=== PATIENT | male | born 1935 | race Caucasian/White ===

== ENCOUNTER 2018-04-18 08:27 | Outpatient (CLI) | payer MEDICARE, BC ==
[2018-04-18] MEDS ORDERED: ISOVUE-370 76%-LOCM 1 ML ONE (13:46)
== END 2018-04-18 08:28 | disposition home or self-care (01) ==
LOC: BICCT 08:27
PROVIDERS: ATTEND Urology
DX: R31.0 Gross hematuria (principal); N20.0 Calculus of kidney; N32.89 Other specified disorders of bladder; N32.3 Diverticulum of bladder
CPT/HCPCS: 74178; 82565

== ENCOUNTER 2018-04-28 12:06 | Outpatient (CLI) | payer MEDICARE, BC ==
[2018-04-28 14:03] LABS: Hemoglobin 14.1 g/dL (14.0-18.0); Mean Corpuscular HGB CONC 33.8 g/dL (32.0-36.0); Mean Corpuscular Hemoglobin 31.3 pg (27.0-31.0); Mean Corpuscular Volume 92.5 fL (78.0-98.0); Mean Platelet Volume 8.3 fL (7.4-10.4); Platelet Count 132 thou/uL (130-400); RBC Distribution Width 11.9 % (11.5-14.5); White Blood Cell (WBC) Count 4.8 thou/uL (4.8-10.8)
[2018-04-28 14:12] LABS: INR-International Normal Ratio 1.2; PTT 29.4 SEC (22.9-36.1); Prothrombin Time 15.3 SEC (12.0-14.7)
[2018-04-28 14:13] LABS: Bilirubin Negative (Negative); Blood, Urine Large (Negative); Clarity CLEAR (Clear); Glucose, Urine (Dipstick) Negative (Negative); Leukocyte Small (Negative); Nitrite Negative (Negative); Protein, Urine (Dipstick) Negative (Neg-Trace); Specific Gravity, Urine 1.011 (1.002-1.036); Urobilinogen 0.2 mg/dL (0.2-1.0); pH, Urine 7.5 (5.0-9.0)
[2018-04-28 14:18] LABS: Bacteria/HPF None Seen HPF (None Seen); Hyaline Casts/LPF 0-3 HYALINE CAST LPF (0-3 Hyaline); Pathc Cast-AUWi Flag 0.43 (0-2.49); RBC/HPF GREATER THAN 50-TNTC HPF (0-3); Squamous Epithelial None Seen HPF (0-3); WBC/HPF 0-3 HPF (0-3)
[2018-04-28 14:21] LABS: Anion Gap 11 mmol/L (10-20); BUN (Urea Nitrogen) 28 mg/dL (8.4-25.7); Calc. Creatinine Clearance 0 mL/min (70-130); Calcium 9.7 mg/dL (7.8-10.44); Carbon Dioxide 29 mmol/L (23-31); Chloride 103 mmol/L (98-107); Estimated GFR-MDRD 67; Glucose 88 mg/dL (83-110); Potassium 4.2 mmol/L (3.5-5.1); Sodium 139 mmol/L (136-145)
== END 2018-04-28 12:07 | disposition home or self-care (01) ==
LOC: LABBT 12:06
PROVIDERS: ATTEND Urology
DX: Z01.818 Encounter for other preprocedural examination (principal); C67.2 Malignant neoplasm of lateral wall of bladder; N40.1 Benign prostatic hyperplasia with lower urinary tract symptoms
CPT/HCPCS: 80048; 81001; 85027; 85610; 85730; 86850; 86900; 86901; 87086; 93005; 93010

== ENCOUNTER 2018-04-28 13:25 | Inpatient (IN) | payer MEDICARE, BC ==
[2018-04-28 13:59] LABS: #Basophils 0.1 thou/uL (0.0-0.2); #Eosinphils 0.3 thou/uL (0.0-0.7); #Lymphocytes 1.3 thou/uL (1.20-3.40); #Monocytes 0.5 thou/uL (0.11-0.59); #Neutrophils 2.4 thou/uL (1.40-6.50); %Basophils 1.3 % (0.0-1.0); %Eosinophils 6.7 % (0.0-10.0); %Lymphocytes 28.8 % (21.0-51.0); %Monocytes 10.9 % (0.0-10.0); %Neutrophils 52.4 % (42.0-75.0); Hemoglobin 14.4 g/dL (14.0-18.0); Mean Corpuscular HGB CONC 33.4 g/dL (32.0-36.0); Mean Corpuscular Volume 92.9 fL (78.0-98.0); Mean Platelet Volume 7.8 fL (7.4-10.4); Platelet Count 127 thou/uL (130-400); RBC Distribution Width 11.8 % (11.5-14.5); Red Blood Cell (RBC) Count 4.64 mill/uL (4.70-6.10); White Blood Cell (WBC) Count 4.6 thou/uL (4.8-10.8)
[2018-04-28 14:13] LABS: Magnesium 2.4 mg/dL (1.6-2.6); Phosphorus 3.4 mg/dL (2.3-4.7)
[2018-04-28 14:20] LABS: ALT (SGPT) 24 U/L (8-55); AST (SGOT) 28 U/L (5-34); Albumin 4.1 g/dL (3.4-4.8); Alkaline Phosphatase 70 U/L (40-150); Anion Gap 11 mmol/L (10-20); BUN (Urea Nitrogen) 27 mg/dL (8.4-25.7); Bilirubin, Total 1.7 mg/dL (0.2-1.2); Calc. Creatinine Clearance 0 mL/min (70-130); Calcium 9.6 mg/dL (7.8-10.44); Carbon Dioxide 29 mmol/L (23-31); Chloride 103 mmol/L (98-107); Estimated GFR-MDRD 67; Globulin 2.4 g/dL (2.4-3.5); Glucose 93 mg/dL (83-110); Potassium 4.5 mmol/L (3.5-5.1); Protein, Total 6.5 g/dL (5.8-8.1); Sodium 138 mmol/L (136-145)
[2018-04-28 14:26] LABS: CKMB 4.3 ng/mL (0-6.6); Troponin I Less than 0.010 ng/mL (< 0.028)
[2018-04-28] MEDS ORDERED: Heparin 25,000 units/D5W 500 ML ONE (15:18)
[2018-04-28 15:23] LABS: INR-International Normal Ratio 1.2; PTT 29.5 SEC (22.9-36.1); Prothrombin Time 15.5 SEC (12.0-14.7)
[2018-04-28] MEDS ORDERED: Heparin 25,000 units/D5W 500 ML IV SCH (15:30)
--- NOTE | 2018-04-28 15:32 | RAD ---
PORTABLE CHEST: 04/28/18 HISTORY: Atrial flutter. Lungs appear clear. No infiltrate. No evidence of vascular congestion or edema. Heart size is upper n ormal. IMPRESSION: No acute lung process identified on portable exam. POS: [facility]
[2018-04-28 17:16] LABS: Troponin I Less than 0.010 ng/mL (< 0.028)
[2018-04-28] MEDS ORDERED: Acetaminophen 325 MG TAB PO PRN (18:28)
[2018-04-28] MEDS ORDERED: Ondansetron HCl/PF 4 MG/2 ML Vial IVP PRN (18:28)
[2018-04-28] MEDS ORDERED: Ondansetron ODT 4 MG TAB SL PRN (18:28)
[2018-04-28 20:12] LABS: Troponin I Less than 0.010 ng/mL (< 0.028)
[2018-04-28] MEDS ORDERED: Enoxaparin Sodium 40 MG/0.4 ML SYRINGE SC SCH (20:15)
[2018-04-28 20:18] VITALS: BMI 25.0
[2018-04-28] MEDS: Silodosin 8 MG CAP PO SCH (22:11)
[2018-04-28 22:35] LABS: INR-International Normal Ratio 1.3; PTT 40.7 SEC (22.9-36.1)
--- NOTE | 2018-04-29 02:41 | CON ---
DATE OF CONSULTATION: 04/28/2018 REASON FOR CONSULTATION: Atrial flutter with a slow ventricular response. HISTORY OF PRESENT ILLNESS: Mr. Ruiz is a delightful 82-year-old gentleman. He was planning on hav ing surgical therapy on his bladder next week. He came in for preoperative evaluation, was found to have atrial flutter with a slow ventricular response. The patient denies chest pain or pressure. He gets lightheaded only when he stands up quickly, but n ot otherwise routinely. No syncope or near syncope. Otherwise, he had been active and relatively he althy for 82 years of age. MEDICATIONS PRIOR TO ADMISSION: No cardiac medicines. Rapaflo. ALLERGIES: LATEX. REVIEW OF SYSTEMS: Constitutional: No significant weight gain or loss. Vision: No changes. Heari ng: No changes. Pulmonary: No cough or wheezing. Gastrointestinal: No nausea, vomiting, diarrhea . Skin: No rashes. Neurologic: No unilateral weakness or numbness. Psychiatric: No unusual depr ession or anxiety. Hematologic: No unusual bruising. Genitourinary: Positive for intermittent hem aturia. PHYSICAL EXAMINATION: GENERAL: A pleasant elderly gentleman, looks younger than his chronologic age. VITAL SIGNS: Blood pressure 142/69, pulse 40, it is currently regular. HEENT: Eyes, sclerae nonicteric. Mouth mucous membranes moist. NECK: Supple, no lymphadenopathy. LUNGS: Clear. CARDIAC: It is regular but slow. No murmur, rub or gallop. ABDOMEN: Soft, nontender. EXTREMITIES: No clubbing or cyanosis. There is no edema. He has good posterior tibial pulses bilat erally. LABORATORY AND X-RAY FINDINGS: EKG reveals atrial flutter with a slow ventricular response. ASSESSMENT: 1. Atrial flutter with a slow ventricular response. 2. The patient has a problem with the bladder, which will require surgical therapy. PLAN: 1. Echocardiogram. 2. We will consult Dr. Mantilla at some point as patient likely will need pacemaker insertion. 3. Hopefully, also could consider atrial flutter ablation, really could not do flutter ablation curr ently as I really cannot be anticoagulated due to the potential for hematuria.
[2018-04-29 05:32] LABS: INR-International Normal Ratio 1.3; PTT 34.1 SEC (22.9-36.1); Prothrombin Time 15.8 SEC (12.0-14.7)
[2018-04-29] MEDS ORDERED: Silodosin 8 MG CAP PO SCH ×2 (08:00→18:00)
--- NOTE | 2018-04-29 08:17 | PRG ---
DATE OF SERVICE: 04/29/2018. SUBJECTIVE: The patient is feeling fine. Denies chest pain. Denies shortness of breath. He has be en active, mowing his own lawn, exercising 3-4 times a week. He states that he does have some anxiet y over what is going on with his low heart rate and anxious about how to proceed from here. OBJECTIVE: VITAL SIGNS: Temperature 98.2, pulse of 52-59, respirations 16, blood pressure 139/93, pulse ox is 9 5%-98% on room air. GENERAL: He is awake and alert, in no acute distress. Speech is clear. NECK: Supple. HEART: Bradycardic. LUNGS: Clear. ABDOMEN: Soft. EXTREMITIES: With no edema. LABORATORY DATA: PT 15.8, PTT 34.1, INR 1.3. Chemistry remained stable. Troponin I has been negati ve x3. IMAGING: Chest x-ray from yesterday reveals no active disease. EKG continued to show atrial flutter with rates in the 50s. ASSESSMENT AND PLAN: This is an 82-year-old gentleman with no prior medical history except for glauc nica and benign prostatic hypertrophy and in the process of being worked up for possible bladder cance r, now with new onset atrial flutter with slow ventricular response and bradycardia. 1. Atrial flutter. Awaiting echocardiogram and further plan per Cardiology and Electrophysiology, p ossible pacemaker placement versus ablation. 2. Bladder mass. Hopefully, we will be able to proceed the procedure with Dr. Nuñez next week. 3. Benign prostatic hypertrophy. We will continue Rapaflo.
--- NOTE | 2018-04-29 09:50 | HP ---
DATE OF ADMISSION: 04/28/2018 PRIMARY CARE PHYSICIAN: Magdy Reilly D.O. CHIEF COMPLAINT: Bradyarrhythmia. HISTORY OF PRESENT ILLNESS: The patient was undergoing preoperative EKG for prostatic cancer resecti on, when he was found to be in atrial flutter with rates in the 30s. The patient was asymptomatic, t ransported to the emergency department with confirmatory EKG remained in the 30s and asymptomatic atr ial flutter. The patient was started on a heparin drip in the emergency department in case more urge nt procedures wanted to be done by Cardiology. Cardiology was consulted from emergency department to follow. The patient remained stable and asymptomatic. The patient recently had a biopsy to the con firmed mass with some hematuria and blood clots in urine for the last 2 days. This is much improved since heparin drip was started, and in the last couple hours, he has not had any new bleeding in urin e reported yet. PAST MEDICAL HISTORY: Includes a Dupuytren's contracture, actinic keratosis, benign prostatic hyperp lasia, prostatic cancer, hernia surgery, migraines, glaucoma. The patient is taking travoprost 1 johnnie p ophthalmic, silodosin 8 mg capsule with meals daily and 0.5 solution 1 drop ophthalmic twice daily. PAST SURGICAL HISTORY: Includes cataract removal and hernia repair. SOCIAL HISTORY: The patient denies tobacco use. He is currently , nondrinker. ALLERGIES: Include SHRIMP. REVIEW OF SYSTEMS: More formal review of systems, no fevers, no chills, no cough, no congestion, no chest pain, no palpitations, no abdomen pain, no diarrhea, no nausea, no vomiting. Positive hematuri a, no dysuria, no lower extremity edema, no headache, no confusion. PHYSICAL EXAMINATION: VITAL SIGNS: Review of vital signs on arrival to floor, temperature of 98.1, pulse of 41, respirator y rate of 18, oxygen saturation 96% on room air, blood pressure 142/69. GENERAL: The patient is alert and oriented, in no acute distress. HEENT: Head is normocephalic, atraumatic. Extraocular movements are intact. Sclerae are clear. Or al mucosa is moist. NECK: Supple. HEART: Irregularly irregular. No murmurs auscultated. LUNGS: Clear to auscultation bilaterally. No rubs or wheezes. ABDOMEN: Soft, nontender, positive bowel sounds throughout. EXTREMITIES: Lower extremities without cyanosis or edema. NEUROLOGIC: The patient is alert and oriented. No focal deficits. Speech is normal. LABORATORY WORK: Review of laboratory work, white blood cell count of 4.6, hemoglobin of 14.4, plate let count of 127. INR of 1.2, PTT of 29.5. Troponins x3 less than 0.01. Sodium of 138, potassium o f 4.5, CO2 of 29, BUN of 27, creatinine of 1.05, glucose of 93, phosphorus of 3.4, magnesium of 2.4, total bilirubin isolated of 1.7, AST of 28, ALT of 24, alkaline phosphatase of 70, albumin of 4.1. C hest x-ray without acute cardiopulmonary events. ASSESSMENT AND PLAN: Atrial flutter with severe bradycardia. Patient currently asymptomatic and hea rt rate has rebounded. Continuing heparin drip from emergency department. Consulting Cardiology for further recommendations on cardioversion, medical management, or pacemaker needs. I will maintain t he patient on clear liquid in case they decide for any intervention tomorrow. Place patient on telem etry. Cardiology has recommended echocardiogram first to better denote the etiology of the atrial fl utter. We will discuss with Dr. Magdy Reilly for hand off tomorrow.
--- NOTE | 2018-04-29 11:41 | CON ---
DATE OF CONSULTATION: 04/29/2018 REFERRING PHYSICIAN: Jani Astudillo M.D. REASON FOR CONSULTATION: Atrial flutter with slow ventricular response. HISTORY OF PRESENT ILLNESS: Mr. Ruiz is a very pleasant, elderly gentleman who was initially brought in to have surgery on his bladder next week. He came in for preoperative evaluation and was found to be in atrial flutter with slow ventricular response with heart rates in the 30s. He is largely asymptomatic with this. He does endorse occasional lightheadedness, but only when standing up. He has not had any syncope or near syncopal episodes. He denies any stroke or stroke-like symptoms, heart racing, palpitations, chest pain or pressure. He continues to lead an active lifestyle and does not have a history of abnormal heart rhythms in the past. While he was in the emergency room, he was started on a heparin drip for anticoagulation. The patient has recently had a biopsy of his confirmed urologic mass and has passed some small blood clots in his urine over the past 2 days. He denies any worsening of symptoms or increased bleeding. He denies any cleo blood in his urine, just the occasional passage of small clot. REVIEW OF SYSTEMS: A 12-point review of systems was conducted and is negative except that listed above in the HPI. PAST MEDICAL AND SURGICAL HISTORY: 1. Prostatic cancer. 2. Benign prostatic hypertrophy. 3. Actinic keratosis. 4. Hernia surgery. 5. Migraines. 6. Glaucoma. SOCIAL HISTORY: Negative for tobacco, alcohol, and drug use. Currently , lives with his . FAMILY HISTORY: Negative for sudden cardiac or early onset coronary artery disease to the best of his knowledge. ALLERGIES: Include SHRIMP and LATEX. MEDICATIONS AT HOME: Include betaxolol HCL eye drops b.i.d., Travatan Z one drop each eye at bedtime and Rapaflo q.a.c. 8 mg capsule p.o. daily. PHYSICAL EXAMINATION: VITAL SIGNS: Most recent vital signs include temperature of 98.2, heart rate 59 , blood pressure 139/93, oxygen is 98% on room air, and respirations are 16. GENERAL: This is a well-appearing, well-groomed and well-nourished elderly gentleman in no apparent distress. He is alert and oriented. His speech is clear. His affect is appropriate. HEENT: He is normocephalic, atraumatic. His sclerae is anicteric, and his EOMs are intact. His oral mucosa is moist and pink. He has adequate dentition. NECK: Supple without jugular venous distention. His thyroid is nonpalpable. LUNGS: Clear to auscultation bilaterally without wheezes, crackles, or rhonchi. CARDIOVASCULAR: His heart rate is irregular and slightly slow. PMI is nondisplaced. There are no murmurs, rubs or gallops. ABDOMEN: Soft, nontender without palpable masses and hepatojugular reflex is negative. Positive bowel sounds are noted throughout. EXTREMITIES: Warm and dry to touch without clubbing, cyanosis or edema. NEUROLOGIC: Grossly intact with cranial nerves II through XII. Gait was not assessed. LABORATORY DATA AND X-RAY FINDINGS: Hematology was reviewed and is stable with hemoglobin 14.4, hematocrit 43.1, platelet count slightly low at 127. Chemistry : Sodium 138, potassium 4.5, BUN is 27, creatinine 1.05, phosphorus 3.4, magnesium 2.4, AST 28, ALT 24. Serial troponins have been negative. Chest x- ray in the emergency room showed no acute lung processes identified. No vascular congestion or edema. Heart size is normal. DATABASE: Review of EKG and telemetry, all strips and rhythms were personally reviewed and revealed typical atrial flutter with variable AV conduction occasionally with extremely low ventricular rates in the 30s. Currently, largely sustaining in the 40-50 beat per minute range. Otherwise, normal intervals. ASSESSMENT: 1. Typical atrial flutter with slow ventricular response. 2. Bradycardia, asymptomatic. 3. Bladder mass requiring surgical therapy, hopefully in the near future. 4. Mild hematuria. RECOMMENDATIONS: A long discussion was had with Mr. Ruiz and his regarding treatment options and considerations at this time. With his recent hematuria, anticoagulation is somewhat of a challenge. He does run the risk for severe bleeding complications if oral anticoagulation is initiated. With that being said, oral anticoagulation must be in place before ablation can be considered in the future. While in his atrial flutter, his ventricular response is quite slow and certainly a pacemaker is an appropriate way to proceed to correct his bradycardia. We are awaiting an echocardiogram to evaluate LV function as well as to assess for a dyssynchrony and to further evaluate if the patient would benefit from biventricular pacing instead of just a dual chamber pacemaker. All risks, benefits, and alternatives were discussed with the patient. Risks of pacemaker implantation include pain, swelling, bruising, infection, and damage to the lung and damage to the heart that may require additional surgical intervention or chest tube placement temporarily. The patient and his voiced understanding and agreed to move forward with pacemaker implantation, possibly biventricular once echocardiogram results are available and reviewed. In the future, we will discuss CTI ablation to address his atrial flutter once his hematuria has been resolved. He also does require urologic surgery for his reportedly cancerous mass. Ideally, we would wait 2-3 weeks before moving forward with the procedure and additional invasive procedures after device implant. Thank you for allowing us to participate in the care of the patient. DARSHAN
[2018-04-29] MEDS ORDERED: Lidocaine 1% (PF) 30 ML VIAL ONE ×2 (12:50→12:53)
[2018-04-29] MEDS ORDERED: CEFAZOLIN 1 GM VIAL ONE (12:53)
[2018-04-29] MEDS ORDERED: Midazolam HCl 2 mg/2 ml Vial ONE (13:42)
[2018-04-29] MEDS ORDERED: Fentanyl 100 MCG/2 ML VIAL ONE (13:43)
--- NOTE | 2018-04-29 15:33 | RAD ---
UPRIGHT PORTABLE CHEST 1 VIEW: Date: 04/29/18 HISTORY: 82-year-old male with history of post cardiac device placement. COMPARISON: 04/28/18. FINDINGS: Left ICD placement without pneumothorax or pleural effusion. Monitor leads overlie the chest. The rig ht lung is clear. Heart size is within normal limits. IMPRESSION: Overall stable chest with mild vascular congestion. Left ICD placement without complication. POS: [facility]
[2018-04-29] MEDS: Cephalexin 250 MG CAP PO SCH (17:49)
[2018-04-29] MEDS: Silodosin 8 MG CAP PO SCH (17:50)
[2018-04-30] MEDS ORDERED: Ondansetron HCl/PF 4 MG/2 ML Vial IVP PRN (00:13)
[2018-04-30] MEDS ORDERED: Ondansetron ODT 4 MG TAB SL PRN (00:13)
[2018-04-30] MEDS: Acetaminophen 325 MG TAB PO PRN ×4 (00:16→18:21)
[2018-04-30] MEDS: Cephalexin 250 MG CAP PO SCH ×4 (00:17→17:31)
--- NOTE | 2018-04-30 09:37 | PRG ---
DATE OF SERVICE: 04/30/2018 SUBJECTIVE: The patient is doing well this morning. He remains asymptomatic. He is postop day #1 s tatus post pacemaker placement yesterday. OBJECTIVE: VITAL SIGNS: Temperature 98.3, pulse 60, respiration 14, pulse ox 97, and blood pressure 169/82. HEART: Regular rate and rhythm. LUNGS: Clear. ABDOMEN: Soft. EXTREMITIES: No edema. Pacemaker insertion site clear. LABORATORY DATA: None. ASSESSMENT: 1. New onset atrial flutter, status post pacemaker placement postop day #1. 2. Hematuria. 3. Bladder mass scheduled for a procedure in the near future by Dr. Nuñez. 4. Benign prostatic hypertrophy. 5. History of prostate cancer. PLAN: 1. Possible discharge soon. 2. May still need an outpatient cardiac ablation procedure. 3. We will follow up with Dr. Nuñez to decide on the plan of action on the bladder tumor. 4. We will continue to monitor the blood pressure.
[2018-04-30] MEDS ORDERED: Silodosin 8 MG CAP PO SCH (17:00)
[2018-04-30 23:23] LABS: Troponin I 0.019 ng/mL (< 0.028)
[2018-05-01] MEDS: Cephalexin 250 MG CAP PO SCH ×2 (00:17→06:03)
[2018-05-01 07:38] VITALS: BP 165/88; TEMP 98.4
[2018-05-01] MEDS ORDERED: Lisinopril 10 MG TAB PO SCH (09:00)
--- NOTE | 2018-05-01 12:22 | DIS ---
DATE OF ADMISSION: 04/28/2018 DATE OF DISCHARGE: 05/01/2018 DISCHARGE DIAGNOSES: 1. New onset atrial flutter, status post pacemaker placement, postop day #2. 2. Hematuria. 3. Bladder mass, scheduled for procedure in the near future by Dr. Nuñez. 4. Benign prostatic hypertrophy. 5. History of bladder prostate cancer. DISCHARGE MEDICATIONS: 1. Keflex 500 p.o. q.6 hours #28. 2. Lisinopril 10 mg 1 p.o. q.a.m. 3. Rapaflo 8 mg p.o. at bedtime. 4. Aspirin on hold. BRIEF HISTORY: This is an 82-year-old, very pleasant white male who was to undergo bladder surgery, was found to have atrial flutter on a routine EKG with a rate in the 30s. The patient was asymptomat ic and was referred to the emergency room. The patient was started on heparin by Cardiology. He was seen by Dr. Astudillo. He did have a biopsy previously and was having hematuria with blood clots. How ever, his bleeding did resolve. HOSPITAL COURSE: The patient was seen by Dr. Mantilla. The patient had a pacemaker placed. This was do ne on 04/29/2018. The patient has remained asymptomatic throughout his entire hospital stay; however , he remains in atrial flutter. Dr. Mantilla did recommend that he will follow up with and have a future ablation procedure done as an outpatient. The patient's blood pressure was slightly elevated throug hout his hospital stay and lisinopril 10 mg was added to his regimen. He will also follow with Dr. Scotty wills to determine timing of the excision of his bladder mass.
== END 2018-05-01 11:45 | disposition home or self-care (01) | DRG 244 ==
LOC: ERS 13:25 → ERHOLD 16:15 → 2NO 18:30
PROVIDERS: ADMIT Radiology Diagnostic Radiology; ATTEND Radiology Diagnostic Radiology
PROC: 0JH606Z Insertion of Pacemaker, Dual Chamber into Chest Subcutaneous Tissue and Fascia, Open Approach (ICD-10-PCS; principal; 2018-04-29)
PROC: 02H63JZ Insertion of Pacemaker Lead into Right Atrium, Percutaneous Approach (ICD-10-PCS; 2018-04-29)
PROC: 02HK3JZ Insertion of Pacemaker Lead into Right Ventricle, Percutaneous Approach (ICD-10-PCS; 2018-04-29)
DX: I48.3 Typical atrial flutter (principal); R31.9 Hematuria, unspecified; N32.9 Bladder disorder, unspecified; N40.0 Benign prostatic hyperplasia without lower urinary tract symptoms; Z85.46 Personal history of malignant neoplasm of prostate; R00.1 Bradycardia, unspecified; Z85.828 Personal history of other malignant neoplasm of skin; H40.9 Unspecified glaucoma; G43.909 Migraine, unspecified, not intractable, without status migrainosus
CPT/HCPCS: 33208; 36415; 71045; 80048; 81001; 82553; 83735; 84100; 84484; 85027; 85610; 85730; 86850; 86900; 86901; 87086; 93005; 93010; 93306; 93798; 96361; 96365; 96366; 99152; 99153; A4216; C1785; C1898; J0690; J1644; J1650; J2001; J2250; J3010; J3490

== ENCOUNTER 2018-05-24 09:54 | Outpatient (CLI) | payer MEDICARE, BC ==
[2018-05-24 10:56] LABS: Hemoglobin 14.1 g/dL (14.0-18.0); Mean Corpuscular HGB CONC 33.2 g/dL (32.0-36.0); Mean Corpuscular Hemoglobin 31.1 pg (27.0-31.0); Mean Corpuscular Volume 93.6 fL (78.0-98.0); Platelet Count 141 thou/uL (130-400); RBC Distribution Width 11.7 % (11.5-14.5); Red Blood Cell (RBC) Count 4.54 mill/uL (4.70-6.10); White Blood Cell (WBC) Count 4.1 thou/uL (4.8-10.8)
[2018-05-24 11:03] LABS: INR-International Normal Ratio 1.2; PTT 24.5 SEC (22.9-36.1); Prothrombin Time 15.1 SEC (12.0-14.7)
[2018-05-24 11:31] LABS: Anion Gap 14 mmol/L (10-20); BUN (Urea Nitrogen) 27 mg/dL (8.4-25.7); Calc. Creatinine Clearance 0 mL/min (70-130); Calcium 9.8 mg/dL (7.8-10.44); Carbon Dioxide 27 mmol/L (23-31); Chloride 104 mmol/L (98-107); Estimated GFR-MDRD 65; Glucose 96 mg/dL (83-110); Potassium 4.6 mmol/L (3.5-5.1); Sodium 140 mmol/L (136-145)
[2018-05-24 19:25] LABS: Bilirubin Negative (Negative); Blood, Urine Negative (Negative); Clarity CLEAR (Clear); Glucose, Urine (Dipstick) Negative (Negative); Leukocyte Negative (Negative); Nitrite Negative (Negative); Protein, Urine (Dipstick) Negative (Neg-Trace); Specific Gravity, Urine 1.006 (1.002-1.036); Urobilinogen 0.2 mg/dL (0.2-1.0)
[2018-05-24 19:27] LABS: Bacteria/HPF None Seen HPF (None Seen); Hyaline Casts/LPF 0-3 HYALINE CAST LPF (0-3 Hyaline); Pathc Cast-AUWi Flag 0.14 (0-2.49); RBC/HPF 0-3 HPF (0-3); Squamous Epithelial None Seen HPF (0-3); WBC/HPF None Seen HPF (0-3)
== END 2018-05-24 09:55 | disposition home or self-care (01) ==
LOC: LABBT 09:54
PROVIDERS: ATTEND Urology
DX: Z01.818 Encounter for other preprocedural examination (principal); C67.9 Malignant neoplasm of bladder, unspecified; N40.1 Benign prostatic hyperplasia with lower urinary tract symptoms; N13.8 Other obstructive and reflux uropathy
CPT/HCPCS: 80048; 81001; 85027; 85610; 85730; 87086; 93005; 93010

== ENCOUNTER 2018-05-30 08:40 | Outpatient (CLI) | payer MEDICARE, BC | END 2018-05-30 08:41 | disposition home or self-care (01) | LOC: LABBT 08:40 | PROVIDERS: ATTEND Urology | DX: Z01.812 Encounter for preprocedural laboratory examination (principal); C67.9 Malignant neoplasm of bladder, unspecified; N40.1 Benign prostatic hyperplasia with lower urinary tract symptoms; N13.8 Other obstructive and reflux uropathy | CPT/HCPCS: 86850; 86900; 86901 ==

== ENCOUNTER 2018-06-02 | Observation (INO) | payer MEDICARE, BC | END 2018-06-03 16:19 | disposition home or self-care (01) | PROVIDERS: ADMIT Urology | PROC: 0V508ZZ Destruction of Prostate, Via Natural or Artificial Opening Endoscopic (ICD-10-PCS; principal; 2018-06-02) | PROC: 0T5B8ZZ Destruction of Bladder, Via Natural or Artificial Opening Endoscopic (ICD-10-PCS; 2018-06-02) | DX: C67.2 Malignant neoplasm of lateral wall of bladder (principal); N40.1 Benign prostatic hyperplasia with lower urinary tract symptoms; I48.3 Typical atrial flutter; Z95.0 Presence of cardiac pacemaker; Z79.899 Other long term (current) drug therapy; Z91.041 Radiographic dye allergy status ==

== ENCOUNTER 2018-10-26 07:25 | Outpatient (CLI) | payer MEDICARE, BC ==
[2018-10-26 09:30] LABS: Hemoglobin 13.7 g/dL (14.0-18.0); Mean Corpuscular HGB CONC 32.9 g/dL (32.0-36.0); Mean Corpuscular Hemoglobin 30.2 pg (27.0-31.0); Mean Corpuscular Volume 91.9 fL (78.0-98.0); Mean Platelet Volume 8.4 fL (7.4-10.4); Platelet Count 128 thou/uL (130-400); RBC Distribution Width 11.6 % (11.5-14.5); Red Blood Cell (RBC) Count 4.52 mill/uL (4.70-6.10); White Blood Cell (WBC) Count 4.3 thou/uL (4.8-10.8)
[2018-10-26 09:39] LABS: INR-International Normal Ratio 1.3; PTT 31.8 SEC (22.9-36.1); Prothrombin Time 16.3 SEC (12.0-14.7)
[2018-10-26 09:53] LABS: Anion Gap 11 mmol/L (10-20); BUN (Urea Nitrogen) 25 mg/dL (8.4-25.7); Calc. Creatinine Clearance 0 mL/min (70-130); Calcium 9.3 mg/dL (7.8-10.44); Carbon Dioxide 26 mmol/L (23-31); Chloride 103 mmol/L (98-107); Estimated GFR-MDRD 67; Glucose 89 mg/dL (83-110); Potassium 4.3 mmol/L (3.5-5.1); Sodium 136 mmol/L (136-145)
== END 2018-10-26 07:26 | disposition home or self-care (01) ==
LOC: LABBT 07:25
PROVIDERS: ATTEND Internal Medicine Cardiovascular Disease
DX: Z01.818 Encounter for other preprocedural examination (principal); I48.91 Unspecified atrial fibrillation
CPT/HCPCS: 80048; 85027; 85610; 85730; 93005; 93010

== ENCOUNTER 2018-10-31 05:52 | Observation (INO) | payer MEDICARE, BC ==
[2018-10-31] MEDS ORDERED: Heparin 10,000 UNITS/1 ML VIAL ONE (06:26)
[2018-10-31] MEDS ORDERED: Fentanyl 100 MCG/2 ML VIAL ONE (07:47)
[2018-10-31] MEDS ORDERED: DOPamine 400 MG/D5W 250 ML 0 ML ONE (08:13)
[2018-10-31] MEDS ORDERED: Isoproterenol 0.2 MG/1 ML AMP ONE (08:13)
[2018-10-31] MEDS ORDERED: PROPOFOL 20 ML ONE (08:17)
[2018-10-31] MEDS ORDERED: Propofol 500 MG/50 ML VIAL ONE (08:17)
[2018-10-31] MEDS ORDERED: Lidocaine 2% Jelly 5 ML TUBE ONE (08:43)
[2018-10-31] MEDS ORDERED: Heparin 25,000 units/D5W 500 ML ONE (08:45)
[2018-10-31] MEDS ORDERED: Protamine Sulfate 50 MG/5 ML VIAL ONE (11:32)
--- NOTE | 2018-10-31 12:57 | OP ---
DATE OF PROCEDURE: 10/31/2018 This is an electrophysiology study and radiofrequency ablation report. REASON FOR PROCEDURE: Mr. Ruiz is an 83-year-old gentleman with prior history of paroxysmal atrial arrhythmias, who has a history of atrial fibrillation and atrial flutter, both noted on his pacemaker telemetry. He is here for radiofrequency ablation and atrial flutter, and pulmonary venous isolation procedure. DESCRIPTION OF PROCEDURE: The patient received propofol by Anesthesia specialist. After adequate level of sedation achieved, both femoral venous areas were prepped, draped, and anesthetized using subcutaneous lidocaine and with ultrasound guidance, the left and right femoral veins were accessed x2. Through the left side, an 11-Israeli sheath was used to advance an ICE (intracardiac echo catheter) to monitor transseptal procedure and effusion throughout the case. With the other left- sided venous access, we advanced a Preface sheath through which a duodecapolar catheter was advanced to the right atrium, His bundle, and eventually CS position. Pacing mapping and recording were performed in each location. From the left side, initially a ThermoCool SFST catheter was advanced to the right atrium. With careful attention to not to injure the preexisting pacemaker wires , 3D nature of the right atrium was obtained. Basic EP study was performed demonstrating HV of 48 milliseconds sinus rhythm, initially the AV Wenckebach cycle length was 580 milliseconds. No VA conduction was seen, AV natalee ERP at 600/480 millisecond. With burst atrial pacing, we were able to induce atrial flutter, which appears to be typical isthmus dependent in activation of the CS, also over right atrial pacing noted longer post isthmus time bilateral CS then proximal CS. Following that during atrial flutter, cavotricuspid isthmus ablation was performed, during which we were able to terminate the atrial flutter. Following that, the proximal CS pacing was performed and the transisthmus block was ascertained measuring longest by the ablation line. Following that, transseptal puncture was performed x2 with ICE monitoring. IV heparin was administered, and ACT was kept over 350 throughout the case. Through the SL1 sheets, a 20-pole Lasso catheter and an ThermoCool SFST catheter was advanced to the left atrium. 3D map of the left atrium was obtained. Esophageal temperature probe was also imaged and it was used to monitor any temperature rise throughout the case and denies esophageal dermal exposure. Following that, standard pulmonary venous isolation procedure was performed, also the posterior wall was isolated. The Isuprel was administered at this time, and the isolation of the veins was rechecked, and then the reconnections were re-ablated. Following that, the catheter was pulled back into the right atrium. The prior transisthmus line was again re-ablated. The intracardiac catheter was used to ascertain no significant effusion, and cardiac silhouette also did not change. The sheaths were pulled in the concrete laborer after IV heparin was stopped and reversed by protamine. No complications noted. Total of 24 minutes of RF ablation was delivered @ 40 morse. CONCLUSION: 1. Typical isthmus dependent atrial flutter. 2. Successful cavotricuspid isthmus ablation. 3. Pulmonary venous isolation of all 4 pulmonary veins and posterior wall isolation achieved. 4. Adequate pacemaker function pre and post procedure. PLAN: Continue anticoagulation and monitoring. Job ID: [id number] [facility]
[2018-10-31] MEDS ORDERED: Glycopyrrolate 0.2 MG/ML 5 ML SYRINGE ONE (16:32)
[2018-10-31] MEDS ORDERED: Heparin 30,000 units/30 ml VIAL ONE (16:32)
[2018-10-31] MEDS ORDERED: ePHEDrine/0.9% NaCl/PF SYRINGE 50 mg/10 ml ONE (16:32)
[2018-10-31] MEDS ORDERED: PROPOFOL 200 MG/20 ML VIAL ONE (16:32)
[2018-10-31] MEDS ORDERED: PHENYLEPHRINE-NS 100 MCG/ML 10 ML SYRINGE ONE (16:32)
[2018-10-31] MEDS ORDERED: Ondansetron PF 4 MG/2 ML Vial ONE (16:32)
[2018-10-31] MEDS ORDERED: Rocuronium Bromide 10 MG/ML (10ML VIAL) ONE (16:32)
[2018-10-31 21:21] VITALS: BMI 26.0
[2018-11-01] MEDS ORDERED: Cephalexin 250 MG CAP PO SCH (09:00)
[2018-11-01 14:13] VITALS: BP 131/71; TEMP 99
--- NOTE | 2018-11-02 12:07 | DIS ---
DATE OF ADMISSION: 10/31/2018 DATE OF DISCHARGE: 11/01/2018 CONDITION ON DISCHARGE: Stable. OPERATING PHYSICIAN: Jalil Mantilla MD PROCEDURES PERFORMED: Electrophysiology study and radiofrequency ablation. DIAGNOSES: 1. Atrial fibrillation. 2. Atrial flutter. HISTORY OF PRESENT ILLNESS: Mr. Ruiz is a pleasant 83-year-old gentleman with a history of paroxysmal atrial arrhythmias. He has a history of paroxysmal atrial fibrillation and atrial flutter, both noted on his pacemaker telemetry. He was brought to [place] and taken to the EP lab with Dr. Mantilla for an elective radiofrequency ablation and EP study for his atrial flutter and atrial fibrillation. He received a total of 24 minutes RF energy delivered at 40 morse. There were no complications. He underwent successful CTI dependent atrial flutter ablation as well as pulmonary venous isolation of all four pulmonary veins in the posterior wall. Adequate pacemaker function was demonstrated both pre and post procedure. He has had an uneventful recovery with stable vital signs and no bleeding complications. He has been ambulating without difficulty, tolerating p.o. intake. He denies any shortness of breath. His concerns today include sore throat with swallowing, slightly productive cough, and a headache. He has not had any pain medication. He denies any heart racing, palpitations, chest pain or pressure, syncope, near syncope, stroke, or stroke-like symptoms. SUBJECTIVE: See above in HPI. OBJECTIVE: VITAL SIGNS: Most recent vital signs: Temperature 97.7, heart rate is 80, blood pressure 117/77, respirations 16, and oxygen is 97% on room air. GENERAL: The patient is alert and oriented. Speech is clear. Affect is appropriate. HEENT: Normocephalic and atraumatic. Sclerae anicteric. EOMs are intact. Oral mucosa is moist and pink with adequate dentition. NECK: JVD is negative. LUNGS: Clear to auscultation bilaterally, but with fine crackles on the right lower lobe. Respirations are even and unlabored with good bilateral excursions. CARDIAC: Heart rate is regularly regular without significant murmur, rub, or gallop. Device is seated at the left infraclavicular fossa. ABDOMEN: Soft and nontender without palpable masses. Hepatojugular reflux is negative. EXTREMITIES: Warm and dry to touch without clubbing, cyanosis, or edema. Bilateral groin sites are stable. Dressings are clean, dry, and intact. There is no bruising. There is mild swelling present, but bilateral sites are nontender which show no signs of bleeding complications. NEUROLOGIC: Grossly intact and nonfocal. DISCHARGE MEDICATIONS: Include Travatan 1 drop each eye at bedtime, Betoptic ophthalmic solution 1 drop each eye twice a day, and Eliquis 5 mg p.o. b.i.d. Prescriptions were electronically sent for Carafate 1 g p.o. q.i.d. x2 weeks, pantoprazole 40 mg p.o. daily x30 days, furosemide 40 mg daily as needed for shortness of breath or swelling in the extremities, and potassium chloride 20 mEq daily only if taking Lasix. DISCHARGE INSTRUCTIONS: No lifting more than 15 pounds for 1 week and light duty. Monitor groin sites for signs of bleeding or complication. Contact [facility] with any post-ablation questions. Resume Eliquis and do not stop taking this medication unless directed to do so by [facility]. Routine followup in 4 to 6 weeks will be arranged or sooner if symptoms dictate. He will take Lasix and potassium as needed for fluid retention and pantoprazole and Carafate for GI prophylaxis. He may take Cepacol lozenges for his sore throat and Motrin 200 mg p.o. t.i.d. as needed for his headache. Job ID: [id number]
--- NOTE | 2018-11-04 20:18 | EKG ---
Test Reason : POST AFIB ABLATION Blood Pressure : / mmHG Vent. Rate : 092 BPM Atrial Rate : 092 BPM P-R Int : 220 ms QRS Dur : 080 ms QT Int : 416 ms P-R-T Axes : 096 065 068 degrees QTc Int : 514 ms Electronic atrial pacemaker Prolonged QT Abnormal ECG Confirmed by Nicholas DURAN ([id number]) on 11/04/2018 8:17:39 PM Referred By: [facility] Confirmed By:Nicholas DURAN
--- NOTE | 2018-11-04 20:25 | EKG ---
Test Reason : Blood Pressure : / mmHG Vent. Rate : 077 BPM Atrial Rate : 077 BPM P-R Int : 000 ms QRS Dur : 080 ms QT Int : 390 ms P-R-T Axes : 101 001 053 degrees QTc Int : 441 ms Atrial-paced rhythm with prolonged AV conduction Possible Anterior infarct , age undetermined Abnormal ECG When compared with ECG of 31-OCT-2018 12:09, (Unconfirmed) Questionable change in QRS axis Inverted T waves have replaced nonspecific T wave abnormality in Anterior leads QT has shortened Confirmed by Nicholas DURAN ([id number]) on 11/04/2018 8:25:07 PM Referred By: DAMON Confirmed By:Nicholas DURAN
--- NOTE | 2018-11-04 20:27 | EKG ---
Test Reason : Blood Pressure : / mmHG Vent. Rate : 080 BPM Atrial Rate : 080 BPM P-R Int : 000 ms QRS Dur : 078 ms QT Int : 398 ms P-R-T Axes : 095 032 053 degrees QTc Int : 459 ms Electronic atrial pacemaker When compared with ECG of 31-OCT-2018 20:59, (Unconfirmed) Borderline criteria for Anterior infarct are no longer Present Confirmed by Nicholas DURAN ([id number]) on 11/04/2018 8:27:02 PM Referred By: DAMON Confirmed By:Nicholas DURAN
== END 2018-11-01 14:31 | disposition home or self-care (01) ==
LOC: CCL 05:52 → 2NO 19:52
PROVIDERS: ADMIT Internal Medicine Cardiovascular Disease; ATTEND Internal Medicine Cardiovascular Disease
PROC: 02583ZZ Destruction of Conduction Mechanism, Percutaneous Approach (ICD-10-PCS; principal; 2018-10-31)
PROC: 02K83ZZ Map Conduction Mechanism, Percutaneous Approach (ICD-10-PCS; 2018-10-31)
PROC: 4A023FZ Measurement of Cardiac Rhythm, Percutaneous Approach (ICD-10-PCS; 2018-10-31)
PROC: 4A0234Z Measurement of Cardiac Electrical Activity, Percutaneous Approach (ICD-10-PCS; 2018-10-31)
DX: I48.0 Paroxysmal atrial fibrillation (principal); I48.3 Typical atrial flutter; Z91.040 Latex allergy status; Z91.013 Allergy to seafood; Z79.01 Long term (current) use of anticoagulants; Z79.899 Other long term (current) drug therapy
CPT/HCPCS: 76942; 85347 ×2; 93005 ×3; 93613; 93623; 93655; 93656; 93662; C1730 ×2; C1731; C1732 ×2; C1759; C1769; G0378; 93010; J1265; J1644; J2405; J2704; J2720; J3010

== ENCOUNTER 2018-12-01 12:37 | Outpatient (CLI) | payer MEDICARE, BC ==
--- NOTE | 2018-12-01 16:18 | CT ---
CT CHEST WITHOUT CONTRAST AND CT ABDOMEN WITHOUT CONTRAST: Date: 12/01/18 HISTORY: Recent ablation. Pain. COMPARISON: Radiograph dated 04/19/18. FINDINGS: Low grade peripheral subpleural reticulation in the lower lobes and within the lingula. No suspicious pulmonary nodule. No pneumothorax. No effusion. There is scarring in the right lung apex with a small, round scar seen on coronal image 63, measuring 5.0 mm. Thyroid is unremarkable. No mediastinal adenopathy. No pericardial effusion. Noncontrast evaluation of the abdomen demonstrates nonobstructive 3 x 4 mm calculus intrapolar left [place], nonobstructive 2 x 2 mm calculus inferior pole left kidney. No hydronephrosis is appreciated. No aneurysmal dilatation of the aorta. No dilated loops of bowel in the abdomen. Of note, the pelvis is not interrogated. Noncontrast evaluation of the spleen and adrenal glands are unremarkable. No retroperitoneal adenopat hy. No displaced rib fracture. Moderate facet arthropathy lower lumbar spine. IMPRESSION: 1. No acute abnormality in the chest or abdomen. 2. Nonobstructive bilateral renal calculi. POS: [facility]
== END 2018-12-01 12:38 | disposition home or self-care (01) ==
LOC: CT 12:37
PROVIDERS: ATTEND Internal Medicine Cardiovascular Disease
DX: R10.9 Unspecified abdominal pain (principal); R11.0 Nausea; N20.0 Calculus of kidney
CPT/HCPCS: 71250; 74150

== ENCOUNTER 2018-12-16 07:22 | Outpatient (CLI) | payer MEDICARE, BC ==
--- NOTE | 2018-12-16 14:52 | NM ---
RADIONUCLIDE GASTRIC EMPTYING SCAN: HISTORY: Abdominal pain. Gas and bloating. Nausea, vomiting, and diarrhea. FINDINGS: Planar imaging shows a decrease in mixing of radiotracer, with most of the uptake remaining in the fu ndus throughout the exam. There is some excretion to the small bowel. Half-life emptying is calcula nora at 103 minutes. Calculated emptying is as follows: TIME PERCENT EMPTYING 30 minutes 3% 60 minutes 15% 2 hours 65% 3 hours 86% 4 hours 83% IMPRESSION: Poor mixing of radiotracer and slightly abnormal/delayed half-life emptying, suggestive of decreased gastric motility. POS: [facility]
== END 2018-12-16 07:23 | disposition home or self-care (01) ==
LOC: NM 07:22
PROVIDERS: ATTEND Family Medicine
DX: R10.84 Generalized abdominal pain (principal)
CPT/HCPCS: 78264; A9541

== ENCOUNTER 2019-12-22 06:32 | Outpatient (CLI) | payer MEDICARE, BC ==
[2019-12-22 12:01] LABS: Hemoglobin 14.3 g/dL (14.0-18.0); Mean Corpuscular HGB CONC 33.4 g/dL (32.0-36.0); Mean Corpuscular Hemoglobin 31.1 pg (27.0-31.0); Mean Corpuscular Volume 93.2 fL (78.0-98.0); Mean Platelet Volume 8.8 fL (7.4-10.4); Platelet Count 143 thou/uL (130-400); RBC Distribution Width 11.6 % (11.5-14.5); Red Blood Cell (RBC) Count 4.59 mill/uL (4.70-6.10); White Blood Cell (WBC) Count 5.2 thou/uL (4.8-10.8)
[2019-12-22 12:08] LABS: INR-International Normal Ratio 1.2; PTT 29.3 SEC (22.9-36.1); Prothrombin Time 15.2 SEC (12.0-14.7)
[2019-12-22 12:17] LABS: Bacteria/HPF None Seen HPF (None Seen); Bilirubin Negative (Negative); Blood, Urine Negative (Negative); Clarity Clear (Clear); Glucose, Urine (Dipstick) Normal (Negative); Leukocyte Negative Leu/uL (Negative); Nitrite Negative (Negative); Protein, Urine (Dipstick) Negative (Neg-Trace); RBC/HPF 0-3 HPF (0-3); Squamous Epithelial 0-3 HPF (0-3); Urobilinogen Normal mg/dL (Less than 2); WBC/HPF 0-3 HPF (0-3)
[2019-12-22 12:28] LABS: Anion Gap 12 mmol/L (10-20); BUN (Urea Nitrogen) 27 mg/dL (8.4-25.7); Calc. Creatinine Clearance 0 mL/min (70-130); Calcium 9.6 mg/dL (7.8-10.44); Carbon Dioxide 29 mmol/L (23-31); Chloride 104 mmol/L (98-107); Estimated GFR-MDRD 63; Glucose 98 mg/dL (83-110); Potassium 4.6 mmol/L (3.5-5.1); Sodium 140 mmol/L (136-145)
== END 2019-12-22 06:33 | disposition home or self-care (01) ==
LOC: LABBT 06:32
PROVIDERS: ATTEND Urology
DX: Z01.818 Encounter for other preprocedural examination (principal); C67.2 Malignant neoplasm of lateral wall of bladder; N40.1 Benign prostatic hyperplasia with lower urinary tract symptoms; R35.0 Frequency of micturition; N52.9 Male erectile dysfunction, unspecified; I48.92 Unspecified atrial flutter; H40.1132 Primary open-angle glaucoma, bilateral, moderate stage
CPT/HCPCS: 80048; 81001; 85027; 85610; 85730; 87086; 93005; 93010

== ENCOUNTER 2020-01-04 06:40 | Day surgery (SDC) | payer MEDICARE, BC ==
[2019-12-22 11:03] VITALS: BMI 24.2
[2020-01-04] MEDS ORDERED: Levofloxacin 500 mg/D5W 100 ml Premix Bag ONE (07:46)
[2020-01-04] MEDS ORDERED: Fentanyl 100 MCG/2 ML VIAL ONE (09:07)
[2020-01-04] MEDS ORDERED: B & O ONE (09:10)
[2020-01-04] MEDS ORDERED: Iothalamate Meglumine 60% 50 ML VIAL FS ONE (09:10)
[2020-01-04] MEDS ORDERED: Lidocaine 1% PF 5 ML VIAL ONE (10:11)
[2020-01-04] MEDS ORDERED: Ondansetron PF 4 MG/2 ML Vial ONE (10:11)
[2020-01-04] MEDS ORDERED: PROPOFOL 200 MG/20 ML VIAL ONE (10:11)
--- NOTE | 2020-01-04 10:24 | OP ---
DATE OF PROCEDURE: 01/04/2020 SERVICES: Urology. PREOPERATIVE DIAGNOSIS: History of bladder cancer with current bladder lesion. POSTOPERATIVE DIAGNOSIS: History of bladder cancer with current bladder lesion. PROCEDURE PERFORMED: Cystoscopy with bladder biopsy and fulguration and destruction of bladder tumor less than 2 cm. INDICATIONS FOR PROCEDURE: Mr. Ruiz is an 84-year-old white male, who has a history of low-grade bladder cancer, status post TURBT and TURP. During his surveillance cystoscopy, he was noted to have an unusual papillary type lesion on the left lateral bladder wall, worrisome for a possible neoplastic recurrence. I recommended we go to the operating room and biopsy this area with fulguration and destruction of the tissue surrounding it to remove the tumor. Risks and benefits of procedure were discussed and he has agreed to proceed forward. DESCRIPTION OF PROCEDURE: After identification of armband and verification of consent, patient was brought back to the operating room. He underwent general anesthesia with an LMA. He was then placed in the dorsal lithotomy position and prepped and draped in the usual sterile fashion. After appropriate time-out, a lubricated 22-Mauritian rigid cystoscope was introduced per urethra into the bladder. The prostate was wide open as previously been described on outpatient cystoscopy after his TURP. A full cystoscopy was performed, which demonstrated a heavily trabeculated bladder with previously noted lesion measuring about 1 cm in size on the left lateral bladder wall. No other lesions were noted throughout the bladder. Using cold cup biopsy forceps, the lesion was removed and a series of biopsies probably about 4 in total until the vast majority of the lesion was removed. There was still some fine papillary material in the periphery of the biopsy sites. The Bugbee electrode was brought in and the entire area was fulgurated for fulguration area of approximately 3 cm to completely destroy the area of the previously noted lesion and the surrounding tissues. There was excellent hemostasis. Both ureters were checked at the end of the procedure and found to be in their orthotopic location unharmed. All blood clot and blood material were evacuated through the bladder. There were no additional lesions or foreign material left within the bladder. The cystoscope was then used to drain the bladder and remove. The patient was taken out of positioning, awakened, and taken to PACU for recovery in stable condition. COMPLICATIONS: None. ESTIMATED BLOOD LOSS: Minimal. RETAINED TUBES AND DRAINS: None. SPECIMENS: Left lateral wall bladder biopsy. DISPOSITION: The patient will be discharged home and follow up with me in approximately 1 to 2 weeks for a postop check and biopsy results. Job ID: [id number]
== END 2020-01-04 12:35 | disposition home or self-care (01) ==
LOC: SDC 06:40
PROVIDERS: ATTEND Urology
PROC: 0T5B8ZZ Destruction of Bladder, Via Natural or Artificial Opening Endoscopic (ICD-10-PCS; principal; 2020-01-04)
DX: C67.2 Malignant neoplasm of lateral wall of bladder (principal); N32.89 Other specified disorders of bladder; G89.29 Other chronic pain; M54.5 Low back pain; I48.92 Unspecified atrial flutter; H40.1132 Primary open-angle glaucoma, bilateral, moderate stage; N40.1 Benign prostatic hyperplasia with lower urinary tract symptoms; R35.0 Frequency of micturition; N52.9 Male erectile dysfunction, unspecified; Z79.899 Other long term (current) drug therapy; Z91.013 Allergy to seafood; Z91.040 Latex allergy status; Z95.0 Presence of cardiac pacemaker
CPT/HCPCS: 88305; J1956; J2001; J2405; J2704; J3010

== ENCOUNTER 2021-04-06 13:05 | Inpatient (IN) | payer OTHER, MEDICARE, BC ==
[2021-04-06] MEDS ORDERED: Dextrose 50% Abboject 50 ML SYRINGE SLOW IVP PRN (13:23)
[2021-04-06] MEDS ORDERED: Ondansetron PF 4 MG/2 ML Vial IVP PRN (13:23)
[2021-04-06] MEDS ORDERED: Dextrose 5% in Water 1,000 ML IV PRN (13:23)
[2021-04-06] MEDS ORDERED: Morphine 2 MG/ML VIAL SLOW IVP PRN (13:23)
[2021-04-06] MEDS ORDERED: traMADol HCl 50 MG TAB PO PRN (13:25)
[2021-04-06 13:58] VITALS: BMI 23.6
[2021-04-06 14:15] LABS: #Eosinphils 0.1 thou/uL (0.0-0.7); #Lymphocytes 0.7 thou/uL (1.20-3.40); #Monocytes 0.8 thou/uL (0.11-0.59); #Neutrophils 9.7 thou/uL (1.40-6.50); %Basophils 0.3 % (0.0-1.0); %Eosinophils 0.5 % (0.0-10.0); %Lymphocytes 6.1 % (21.0-51.0); %Monocytes 7.2 % (0.0-10.0); Hemoglobin 13.3 g/dL (14.0-18.0); Mean Corpuscular HGB CONC 32.8 g/dL (32.0-36.0); Mean Corpuscular Hemoglobin 30.2 pg (27.0-31.0); Mean Corpuscular Volume 92.4 fL (78.0-98.0); Mean Platelet Volume 8.5 fL (7.4-10.4); Platelet Count 133 thou/uL (130-400); RBC Distribution Width 11.6 % (11.5-14.5); White Blood Cell (WBC) Count 11.3 thou/uL (4.8-10.8)
[2021-04-06 14:37] LABS: Anion Gap 16 mmol/L (10-20); BUN (Urea Nitrogen) 28 mg/dL (8.4-25.7); Calc. Creatinine Clearance 53 mL/min (70-130); Calcium 9.1 mg/dL (7.8-10.44); Carbon Dioxide 23 mmol/L (23-31); Chloride 103 mmol/L (98-107); Glucose 114 mg/dL (83-110); Phosphorus 2.5 mg/dL (2.3-4.7); Sodium 138 mmol/L (136-145)
[2021-04-06 14:53] LABS: INR-International Normal Ratio 1.3; Prothrombin Time 16.5 sec (12.0-14.7)
[2021-04-06] MEDS: Acetaminophen 325 MG TAB PO SCH ×2 (15:21→20:42)
[2021-04-06] MEDS ORDERED: Fentanyl 100 MCG/2 ML VIAL ONE ×2 (15:30→16:28)
[2021-04-06] MEDS ORDERED: Dexamethasone 4 mg/ml Vial ONE (15:31)
[2021-04-06] MEDS ORDERED: PHENYLEPHRINE-NS 100 MCG/ML 10 ML SYRINGE ONE (15:48)
[2021-04-06] MEDS ORDERED: ePHEDrine Sulfate 50 MG/10 ML VIAL ONE (15:48)
[2021-04-06] MEDS ORDERED: PROPOFOL 200 MG/20 ML VIAL ONE (15:48)
[2021-04-06] MEDS ORDERED: Rocuronium Bromide 10 MG/ML (10ML VIAL) ONE (15:48)
[2021-04-06] MEDS ORDERED: Glycopyrrolate 0.2 MG/ML 5 ML SYRINGE ONE (15:48)
[2021-04-06] MEDS ORDERED: Lidocaine 1% PF 5 ML VIAL ONE (15:48)
[2021-04-06] MEDS ORDERED: Dexamethasone 20 MG/5 ML VIAL ONE ×2 (15:48→16:00)
[2021-04-06] MEDS ORDERED: Bupivacaine HCl 0.5%/Epinephrine 1:200,000/PF 30 ml Vial ONE (16:00)
[2021-04-06] MEDS ORDERED: Promethazine HCl 25 MG/ML VIAL IVPB PRN (18:38)
[2021-04-06] MEDS ORDERED: Promethazine HCl 25 MG/ML VIAL IM PRN (18:38)
[2021-04-06] MEDS ORDERED: Ondansetron HCl/PF 4 MG/2 ML Vial IVP PRN (18:38)
[2021-04-06] MEDS: Sodium Chloride 0.9% 1,000 ML IV SCH (19:13)
[2021-04-06] MEDS: traMADol HCl 50 MG TAB PO SCH ×2 (19:13→23:52)
[2021-04-06 19:42] LABS: SARS-CoV-2 PCR by NAA Not Detected (NotDetected)
[2021-04-06] MEDS: Senokot S 8.6-50 MG TAB PO SCH (20:43)
[2021-04-06] MEDS ORDERED: Famotidine 20 MG TAB PO SCH (21:00)
[2021-04-06] MEDS: CEFAZOLIN 2 GM in Premix Bag 1 BAG IVPB SCH (23:51)
[2021-04-06] MEDS ORDERED: CEFAZOLIN 2 GM in Premix Bag 1 BAG IVPB SCH (23:59)
[2021-04-07] MEDS: Acetaminophen 325 MG TAB PO SCH ×2 (01:31→07:47)
[2021-04-07] MEDS: Sodium Chloride 0.9% 1,000 ML IV SCH (04:55)
[2021-04-07] MEDS: traMADol HCl 50 MG TAB PO SCH ×3 (05:48→17:16)
[2021-04-07 06:51] LABS: Anion Gap 10 mmol/L (10-20); BUN (Urea Nitrogen) 29 mg/dL (8.4-25.7); Calc. Creatinine Clearance 49 mL/min (70-130); Calcium 8.4 mg/dL (7.8-10.44); Carbon Dioxide 25 mmol/L (23-31); Chloride 101 mmol/L (98-107); Glucose 198 mg/dL (83-110); Potassium 4.3 mmol/L (3.5-5.1); Sodium 132 mmol/L (136-145)
[2021-04-07 07:33] LABS: #Lymphocytes 0.4 thou/uL (1.20-3.40); #Neutrophils 10.6 thou/uL (1.40-6.50); %Basophils 0.2 % (0.0-1.0); %Lymphocytes 3.3 % (21.0-51.0); %Monocytes 8.4 % (0.0-10.0); %Neutrophils 88.1 % (42.0-75.0); Mean Corpuscular HGB CONC 32.1 g/dL (32.0-36.0); Mean Corpuscular Hemoglobin 29.8 pg (27.0-31.0); Mean Corpuscular Volume 92.8 fL (78.0-98.0); Mean Platelet Volume 8.6 fL (7.4-10.4); Platelet Count 113 thou/uL (130-400); RBC Distribution Width 11.6 % (11.5-14.5); Red Blood Cell (RBC) Count 3.36 mill/uL (4.70-6.10); White Blood Cell (WBC) Count 12.1 thou/uL (4.8-10.8)
[2021-04-07] MEDS: Senokot S 8.6-50 MG TAB PO SCH ×2 (07:46→20:39)
[2021-04-07] MEDS: Multivitamin W/ Minerals 1 TAB PO SCH (07:46)
[2021-04-07] MEDS: Polyethylene Glycol 3350 17 GM Packet PO SCH (07:46)
[2021-04-07] MEDS: CEFAZOLIN 2 GM in Premix Bag 1 BAG IVPB SCH ×2 (07:48→17:17)
[2021-04-07] MEDS ORDERED: Sodium Chloride 0.9% 500 ML IVPB SCH (09:15)
[2021-04-07] MEDS ORDERED: Hydrocortisone Sod Succ/PF 100 mg/2 ml Vial IVP SCH ×2 (11:45→14:00)
[2021-04-07] MEDS ORDERED: Cyclobenzaprine 10 MG TAB PO PRN (12:41)
[2021-04-07] MEDS: Ibuprofen 200 MG TAB PO SCH ×2 (14:14→20:39)
[2021-04-07] MEDS: Acetaminophen 500 MG TAB PO SCH ×2 (14:15→19:10)
[2021-04-07] MEDS: Ferrous Sulfate 325 MG TAB PO SCH (17:16)
[2021-04-07] MEDS: Timolol 0.5% Ophth Soln 5 ml Bottle EA EYE SCH (19:12)
[2021-04-07] MEDS: Hydrocortisone Sod Succ/PF 100 mg/2 ml Vial IVP SCH (20:39)
[2021-04-07] MEDS: Ascorbic Acid 500 mg Chewable Tablet PO SCH (20:39)
[2021-04-07] MEDS ORDERED: Latanoprost 0.005% Ophth Soln 2.5 ml Bottle EA EYE SCH (21:00)
[2021-04-08] MEDS: traMADol HCl 50 MG TAB PO SCH ×3 (01:11→11:58)
[2021-04-08] MEDS: Acetaminophen 500 MG TAB PO SCH ×3 (04:15→14:08)
[2021-04-08] MEDS: Hydrocortisone Sod Succ/PF 100 mg/2 ml Vial IVP SCH ×2 (05:25→14:13)
[2021-04-08] MEDS: Ibuprofen 200 MG TAB PO SCH ×2 (05:26→14:07)
[2021-04-08] MEDS: Timolol 0.5% Ophth Soln 5 ml Bottle EA EYE SCH (05:27)
[2021-04-08 05:56] LABS: #Lymphocytes 0.9 thou/uL (1.20-3.40); #Monocytes 1.2 thou/uL (0.11-0.59); #Neutrophils 12.8 thou/uL (1.40-6.50); %Eosinophils 0.1 % (0.0-10.0); %Lymphocytes 6.3 % (21.0-51.0); %Monocytes 8.1 % (0.0-10.0); %Neutrophils 85.6 % (42.0-75.0); Hemoglobin 8.5 g/dL (14.0-18.0); Mean Corpuscular HGB CONC 31.9 g/dL (32.0-36.0); Mean Corpuscular Hemoglobin 29.7 pg (27.0-31.0); Mean Corpuscular Volume 93.2 fL (78.0-98.0); Mean Platelet Volume 8.8 fL (7.4-10.4); Platelet Count 103 thou/uL (130-400); RBC Distribution Width 11.9 % (11.5-14.5); Red Blood Cell (RBC) Count 2.87 mill/uL (4.70-6.10); White Blood Cell (WBC) Count 14.9 thou/uL (4.8-10.8)
[2021-04-08] MEDS: Senokot S 8.6-50 MG TAB PO SCH (08:10)
[2021-04-08] MEDS: Ascorbic Acid 500 mg Chewable Tablet PO SCH (08:10)
[2021-04-08] MEDS: Ferrous Sulfate 325 MG TAB PO SCH (08:10)
[2021-04-08] MEDS: Multivitamin W/ Minerals 1 TAB PO SCH (08:10)
[2021-04-08] MEDS: Polyethylene Glycol 3350 17 GM Packet PO SCH (08:10)
[2021-04-08] MEDS ORDERED: Enoxaparin Sodium 40 MG/0.4 ML SYRINGE SC SCH (09:00)
[2021-04-08 15:15] VITALS: BP 100/53; TEMP 97.9
== END 2021-04-08 16:06 | DRG 481 ==
LOC: SURG A 13:05
PROVIDERS: ADMIT Surgery; ATTEND Surgery
PROC: 0QS606Z Reposition Right Upper Femur with Intramedullary Internal Fixation Device, Open Approach (ICD-10-PCS; principal; 2021-04-06)
DX: S72.141A Displaced intertrochanteric fracture of right femur, initial encounter for closed fracture (principal); D62 Acute posthemorrhagic anemia; E87.1 Hypo-osmolality and hyponatremia; H40.9 Unspecified glaucoma; M25.529 Pain in unspecified elbow; Z95.0 Presence of cardiac pacemaker; V19.9XXA Pedal cyclist (driver) (passenger) injured in unspecified traffic accident, initial encounter; Z85.51 Personal history of malignant neoplasm of bladder; Z91.040 Latex allergy status; Z98.890 Other specified postprocedural states; Z98.49 Cataract extraction status, unspecified eye; Z85.828 Personal history of other malignant neoplasm of skin
CPT/HCPCS: 36415; 36416; 71045; 76000; 80048; 80053; 82533; 83735; 83880; 84100; 85025; 85610; 85730; 86850; 86900; 86901; 93005; C1713; J0690; J1100; J1650; J1720; J1940; J2270; J2704; J3010; J7030; U0003; U0005

== ENCOUNTER 2021-06-05 17:30 | Outpatient (CLI) | payer MEDICARE, BC | END 2021-06-05 17:31 | disposition home or self-care (01) | LOC: SLEEPLAB 17:30 | PROVIDERS: ATTEND Family Medicine | DX: G47.33 Obstructive sleep apnea (adult) (pediatric) (principal); R06.83 Snoring; G47.00 Insomnia, unspecified; I10 Essential (primary) hypertension | CPT/HCPCS: 95801 ==

== ENCOUNTER 2022-03-10 11:57 | Outpatient (CLI) | payer MEDICARE, BC ==
[2022-03-10 13:02] LABS: Hemoglobin 12.9 g/dL (13.5-17.5); Mean Corpuscular HGB CONC 32.4 g/dL (32.0-36.0); Mean Corpuscular Hemoglobin 29.5 pg (27.0-33.0); Mean Corpuscular Volume 91.1 fl (81.2-95.1); Mean Platelet Volume 10.1 fl (7.4-10.4); Platelet Count 166 10x3/uL (150-450); RBC Distribution Width 12.3 % (11.5-14.5); Red Blood Cell (RBC) Count 4.37 10x6/uL (4.32-5.72); White Blood Cell (WBC) Count 5.3 10x3/uL (3.5-10.5)
[2022-03-10 13:03] LABS: INR-International Normal Ratio 1.1; PTT 26.5 sec (22.0-33.0); Prothrombin Time 11.5 sec (9.5-12.1)
[2022-03-10 13:04] LABS: Anion Gap 15 mmol/L (10-20); BUN (Urea Nitrogen) 30 mg/dL (8.4-25.7); Calc. Creatinine Clearance 0 mL/min (70-130); Calcium 9.4 mg/dL (7.8-10.44); Carbon Dioxide 29 mmol/L (23-31); Chloride 102 mmol/L (98-107); Glucose 83 mg/dL (83-110); Potassium 4.5 mmol/L (3.5-5.1); Sodium 141 mmol/L (136-145)
[2022-03-10 13:09] LABS: Bilirubin Neg (Negative); Blood, Urine Negative (Negative); Clarity Clear (Clear); Glucose, Urine (Dipstick) Normal (Negative); Ketone, Urine Negative (Negative); Leukocyte Negative (Negative); Nitrite Negative (Negative); Protein, Urine (Dipstick) Negative (Neg-Trace); Urobilinogen Normal mg/dL (Less than 2)
[2022-03-10 13:58] LABS: Bacteria/HPF Rare-Few HPF (None Seen); RBC/HPF 0-3 HPF (0-3); Squamous Epithelial 0-3 HPF (0-3); WBC/HPF 0-3 HPF (0-3)
[2022-03-11 00:19] LABS: SARS-CoV-2 PCR by NAA Not Detected (NotDetected)
== END 2022-03-10 11:58 | disposition home or self-care (01) ==
LOC: LABBT 11:57
PROVIDERS: ATTEND Urology
DX: Z01.818 Encounter for other preprocedural examination (principal); C67.2 Malignant neoplasm of lateral wall of bladder; N40.1 Benign prostatic hyperplasia with lower urinary tract symptoms; R35.0 Frequency of micturition; N52.9 Male erectile dysfunction, unspecified; I48.92 Unspecified atrial flutter; H40.1132 Primary open-angle glaucoma, bilateral, moderate stage; Z20.822 Contact with and (suspected) exposure to COVID-19
CPT/HCPCS: 80048; 81001; 85027; 85610; 85730; 87086; 93005; U0003; U0005; 93010

== ENCOUNTER 2022-03-13 08:10 | Day surgery (SDC) | payer MEDICARE, BC ==
[2022-03-11 14:08] VITALS: BMI 24.3
[2022-03-13] MEDS ORDERED: mitoMYcin 40 MG in Water For Injection,Sterile 20 ML IVPB SCH (09:45)
[2022-03-13] MEDS ORDERED: CEFAZOLIN 2 GM VIAL ONE (10:19)
[2022-03-13] MEDS ORDERED: Sodium Chloride 0.9% 0 ML ONE (10:19)
[2022-03-13] MEDS ORDERED: Dexmedetomidine 200 MCG/2 ML VIAL ONE (10:42)
[2022-03-13] MEDS ORDERED: Fentanyl 100 MCG/2 ML VIAL ONE (10:42)
[2022-03-13] MEDS ORDERED: Lidocaine 1% PF 5 ML VIAL ONE (10:54)
[2022-03-13] MEDS ORDERED: PROPOFOL 200 MG/20 ML VIAL ONE (10:54)
[2022-03-13] MEDS ORDERED: Ondansetron PF 4 MG/2 ML Vial ONE (10:54)
[2022-03-13] MEDS ORDERED: Dexamethasone 20 MG/5 ML VIAL ONE (10:54)
== END 2022-03-13 14:08 | disposition home or self-care (01) ==
LOC: SDC 08:10
PROVIDERS: ATTEND Urology
PROC: 0T5B8ZZ Destruction of Bladder, Via Natural or Artificial Opening Endoscopic (ICD-10-PCS; principal; 2022-03-13)
PROC: 3E0K7GC Introduction of Other Therapeutic Substance into Genitourinary Tract, Via Natural or Artificial Opening (ICD-10-PCS; 2022-03-13)
DX: C67.2 Malignant neoplasm of lateral wall of bladder (principal); N32.3 Diverticulum of bladder; N40.0 Benign prostatic hyperplasia without lower urinary tract symptoms; I48.92 Unspecified atrial flutter; Z79.899 Other long term (current) drug therapy; Z91.013 Allergy to seafood; Z91.040 Latex allergy status; Z95.0 Presence of cardiac pacemaker
CPT/HCPCS: 51720; 52234; J9280; 88305; A4216; J1100; J2405; J2704; J3010; J3490

== ENCOUNTER 2022-04-01 19:30 | Outpatient (CLI) | payer MEDICARE, BC | END 2022-04-01 19:31 | disposition home or self-care (01) | LOC: SLEEPLAB 19:30 | PROVIDERS: ATTEND Family Medicine | DX: G47.33 Obstructive sleep apnea (adult) (pediatric) (principal); R06.83 Snoring; I10 Essential (primary) hypertension; G47.00 Insomnia, unspecified; G47.10 Hypersomnia, unspecified; I48.91 Unspecified atrial fibrillation; G47.31 Primary central sleep apnea; I48.92 Unspecified atrial flutter | CPT/HCPCS: 95811 ==

== ENCOUNTER 2022-04-21 19:30 | Outpatient (CLI) | payer MEDICARE, BC | END 2022-04-21 19:31 | disposition home or self-care (01) | LOC: SLEEPLAB 19:30 | PROVIDERS: ATTEND Family Medicine | DX: G47.33 Obstructive sleep apnea (adult) (pediatric) (principal); R06.83 Snoring; I10 Essential (primary) hypertension; G47.10 Hypersomnia, unspecified; E66.9 Obesity, unspecified; G47.31 Primary central sleep apnea; G47.61 Periodic limb movement disorder; I48.91 Unspecified atrial fibrillation; Z68.24 Body mass index [BMI] 24.0-24.9, adult | CPT/HCPCS: 95811 ==

== ENCOUNTER 2022-05-08 11:01 | Outpatient (CLI) | payer MEDICARE, BC ==
[2022-05-08 11:40] LABS: #Basophils 0.1 10x3/uL (0.0-0.2); #Eosinphils 0.3 10x3/uL (0.0-0.5); #Monocytes 0.6 10x3/uL (0.0-1.1); %Eosinophils 5.6 % (0.0-6.0); %Lymphocytes 24.8 % (18.0-47.0); %Monocytes 11.4 % (0.0-10.0); Hemoglobin 13.1 g/dL (13.5-17.5); Mean Corpuscular Hemoglobin 29.3 pg (27.0-33.0); Mean Corpuscular Volume 88.8 fl (81.2-95.1); Platelet Count 174 10x3/uL (150-450); RBC Distribution Width 12.4 % (11.5-14.5); Red Blood Cell (RBC) Count 4.47 10x6/uL (4.32-5.72); White Blood Cell (WBC) Count 5.2 10x3/uL (3.5-10.5)
== END 2022-05-08 11:02 | disposition home or self-care (01) ==
LOC: LABBT 11:01
PROVIDERS: ATTEND Orthopaedic Surgery Hand Surgery
DX: Z01.818 Encounter for other preprocedural examination (principal); M65.331 Trigger finger, right middle finger; M72.0 Palmar fascial fibromatosis [Dupuytren]; Z20.822 Contact with and (suspected) exposure to COVID-19
CPT/HCPCS: 85025; 87811; 93005; 93010

== ENCOUNTER 2022-05-12 05:48 | Day surgery (SDC) | payer MEDICARE, BC ==
[2022-05-07 16:13] VITALS: BMI 25.2
[2022-05-12] MEDS ORDERED: Bacitracin Zinc Ointment 30 gm TUBE ONE (06:11)
[2022-05-12] MEDS ORDERED: Betamet Acet/Betamet Na Ph 30 MG/5 ML VIAL ONE (06:11)
[2022-05-12] MEDS ORDERED: Bupivacaine PF 0.5% 30 ML VIAL ONE (06:11)
[2022-05-12] MEDS ORDERED: Neomycin-Polymyxin 1 ML AMP ONE (06:11)
[2022-05-12] MEDS ORDERED: fentaNYL Citrate/PF 100 MCG/2 ML SYRINGE ONE (06:34)
[2022-05-12] MEDS ORDERED: Sodium Chloride 0.9% 100 ML ONE (07:08)
[2022-05-12] MEDS ORDERED: CEFAZOLIN 2 GM VIAL ONE (07:08)
[2022-05-12] MEDS ORDERED: PROPOFOL 200 MG/20 ML VIAL ONE (07:17)
[2022-05-12] MEDS ORDERED: Dexamethasone 20 MG/5 ML VIAL ONE (07:17)
[2022-05-12] MEDS ORDERED: Phenylephrine 10 MG/ML VIAL ONE (07:17)
[2022-05-12] MEDS ORDERED: Ondansetron PF 4 MG/2 ML Vial ONE (07:17)
[2022-05-12] MEDS ORDERED: Lidocaine 1% PF 5 ML VIAL ONE (07:17)
[2022-05-12] MEDS ORDERED: Ketorolac Tromethamine 30 MG/ML VIAL ONE (09:00)
== END 2022-05-12 10:42 | disposition home or self-care (01) ==
LOC: SDC 05:48
PROVIDERS: ATTEND Orthopaedic Surgery Hand Surgery
PROC: 0JNJ0ZZ Release Right Hand Subcutaneous Tissue and Fascia, Open Approach (ICD-10-PCS; principal; 2022-05-12)
PROC: 0LN70ZZ Release Right Hand Tendon, Open Approach (ICD-10-PCS; 2022-05-12)
PROC: 0LB70ZZ Excision of Right Hand Tendon, Open Approach (ICD-10-PCS; 2022-05-12)
DX: M72.0 Palmar fascial fibromatosis [Dupuytren] (principal); M65.331 Trigger finger, right middle finger; M65.841 Other synovitis and tenosynovitis, right hand; M65.332 Trigger finger, left middle finger; G89.29 Other chronic pain; M54.50 Low back pain, unspecified; H40.9 Unspecified glaucoma; Z91.013 Allergy to seafood; Z91.040 Latex allergy status; Z95.0 Presence of cardiac pacemaker
CPT/HCPCS: 88304; 88305; J0690; J0702; J1100; J1885; J2370; J2405; J2704; J3490; S0020

== ENCOUNTER 2023-01-26 13:50 | Outpatient (CLI) | payer MEDICARE, BC | END 2023-01-26 13:51 | disposition home or self-care (01) | LOC: ULT 13:50 | PROVIDERS: ATTEND Internal Medicine Cardiovascular Disease | DX: I48.0 Paroxysmal atrial fibrillation (principal); I49.5 Sick sinus syndrome; Z95.0 Presence of cardiac pacemaker | CPT/HCPCS: 93306 ==